=== PATIENT | male | born 1960 | race Caucasian/White ===

== ENCOUNTER → 2023-05-19 | Outpatient (CLI) | payer OTHER ==
[2023-05-19 15:56] LABS: BASOPHILS ABSOLUTE AUTO 0.01 K/mm3 (0.00-0.23); BASOPHILS PERCENT AUTO 0 % (0-2); EOSINOPHILS ABSOLUTE AUTO 0.01 K/mm3 (0.00-0.68); EOSINOPHILS PERCENT AUTO 0 % (0-6); Hematocrit 40.3 % (37.0-53.0); Hemoglobin 13.4 g/dL (13.5-17.5); IMMATURE GRAN ABSOLUTE AUTO 0.03 K/mm3 (0.00-0.10); IMMATURE GRAN PERCENT AUTO 0 % (0-1); LYMPHOCYTES ABSOLUTE AUTO 0.81 K/mm3 (0.84-5.20); LYMPHOCYTES PERCENT AUTO 9 % (21-46); MONOCYTES ABSOLUTE AUTO 0.77 K/mm3 (0.16-1.47); MONOCYTES PERCENT AUTO 8 % (4-13); Mean Corpuscular HGB 30.5 pg (26.0-34.0); Mean Corpuscular HGB Conc 33.3 g/dL (31.5-36.5); Mean Corpuscular Volume 92 fL (80-100); Mean Platelet Volume 10.1 fL (9.1-12.4); NEUTROPHILS ABSOLUTE AUTO 7.51 K/mm3 (1.96-9.15); NEUTROPHILS PERCENT AUTO 82 % (41-73); Platelet Count 604 K/mm3 (150-400); RDW Coefficient Variation 11.8 % (11.7-14.2); RDW Standard Deviation 39.6 fL (35.1-46.3); Red Blood Cell Count 4.39 M/mm3 (4.30-5.90); White Blood Cell Count 9.14 K/mm3 (4.00-11.30)
[2023-05-19 16:23] LABS: Albumin, Blood 3.6 g/dL (3.4-5.0); Albumin/Globulin Ratio 0.9 (0.8-1.8); Bilirubin, Total 0.7 mg/dL (0.1-1.0); Bun/Creatinine Ratio 16.6 (12.0-20.0); Calcium, Blood 9.4 mg/dL (8.5-10.1); Creatinine, Blood 0.54 mg/dL (0.60-1.20); Globulin, Blood 4.2 g/dL (2.2-4.0); Potassium, Blood 3.9 mmol/L (3.5-5.5); Total Protein, Blood 7.8 g/dL (6.4-8.2)
== END | disposition home or self-care (01) ==
LOC: LAB SHORT 15:49 → LAB 15:49
PROVIDERS: Physician Assistant
DX: R07.1 Chest pain on breathing (principal); R06.00 Dyspnea, unspecified; R14.0 Abdominal distension (gaseous)
CPT/HCPCS: 80053; 83690; 85025

== ENCOUNTER 2023-06-12 10:55 | Inpatient (IN) | payer OTHER ==
[~2023-06-12] VITALS: Ht 167.6 cm; Wt 102.1 kg
[2023-06-12 12:06] LABS: BASOPHILS ABSOLUTE AUTO 0.02 K/mm3 (0.00-0.23); BASOPHILS PERCENT AUTO 0 % (0-2); EOSINOPHILS PERCENT AUTO 0 % (0-6); Hemoglobin 12.9 g/dL (13.5-17.5); IMMATURE GRAN ABSOLUTE AUTO 0.02 K/mm3 (0.00-0.10); IMMATURE GRAN PERCENT AUTO 0 % (0-1); LYMPHOCYTES PERCENT AUTO 10 % (21-46); MONOCYTES ABSOLUTE AUTO 0.86 K/mm3 (0.16-1.47); MONOCYTES PERCENT AUTO 10 % (4-13); Mean Corpuscular HGB 29.4 pg (26.0-34.0); Mean Corpuscular HGB Conc 33.1 g/dL (31.5-36.5); Mean Corpuscular Volume 89 fL (80-100); Mean Platelet Volume 9.3 fL (9.1-12.4); NEUTROPHILS ABSOLUTE AUTO 6.64 K/mm3 (1.96-9.15); NEUTROPHILS PERCENT AUTO 80 % (41-73); Platelet Count 567 K/mm3 (150-400); RDW Coefficient Variation 12.4 % (11.7-14.2); RDW Standard Deviation 40.5 fL (35.1-46.3); Red Blood Cell Count 4.39 M/mm3 (4.30-5.90); White Blood Cell Count 8.34 K/mm3 (4.00-11.30)
[2023-06-12 12:28] LABS: Albumin, Blood 3.2 g/dL (3.4-5.0); Albumin/Globulin Ratio 0.7 (0.8-1.8); Bilirubin, Total 0.5 mg/dL (0.1-1.0); Bun/Creatinine Ratio 11.2 (12.0-20.0); Calcium, Blood 9.6 mg/dL (8.5-10.1); Creatinine, Blood 0.54 mg/dL (0.60-1.20); Globulin, Blood 4.5 g/dL (2.2-4.0); Potassium, Blood 4.5 mmol/L (3.5-5.5); Total Protein, Blood 7.7 g/dL (6.4-8.2)
[2023-06-12 17:46] LABS: International Normalized Ratio 1.18; Prothrombin Time Results 12.3 Sec (9.7-11.5)
[2023-06-12 21:54] VITALS: BP 145/99
--- NOTE | 2023-06-12 22:30 | NUR ---
PT ARRIVED TO THE UNIT AT 2145. PT WAS ABLE TO TRANSFER BY FOOT FROM THE W/ TO THE HOSPITAL BED. PT ADMITTED FOR DYSPNEA/SHORTNESS OF BREATH, AND PERICARDIAL EFFUSION. PT HAS BEEN EXPERIENCING CHEST PAIN FOR ABOUT A MONTH NOW. PT ON TELEMETRY, NSR AT 97BPM. LUNG SOUNDS CTA, BILAT DIMINISHED AT BASES. PT A&O x4, VSS, AFEBRILE. PT ON RA, GOAL FOR OXYGEN SATURATION TO BE AT 94%. OXYGEN SAT AT 92%. SOB WITH ACTIVITY. PT AMBULATES WITH STEADY GAIT, UP AD NILESH, INDEPENDENT WITH ADL's. CALL LIGHT WITHIN REACH, WCTM.
[2023-06-13 02:45] VITALS: BP 141/85
[2023-06-13 05:55] LABS: Hematocrit 39.1 % (37.0-53.0); Hemoglobin 12.6 g/dL (13.5-17.5); Mean Corpuscular HGB 29.5 pg (26.0-34.0); Mean Corpuscular HGB Conc 32.2 g/dL (31.5-36.5); Mean Corpuscular Volume 92 fL (80-100); Mean Platelet Volume 9.2 fL (9.1-12.4); Platelet Count 548 K/mm3 (150-400); RDW Coefficient Variation 12.6 % (11.7-14.2); RDW Standard Deviation 41.9 fL (35.1-46.3); Red Blood Cell Count 4.27 M/mm3 (4.30-5.90); White Blood Cell Count 8.87 K/mm3 (4.00-11.30)
--- NOTE | 2023-06-13 05:57 | NUR ---
END OF SHIFT SUMMARY PT SLEPT ON AND OFF OVERNIGHT. NO C/O GENERALIZED PAIN, SOME SOB WITH EXERTION. PT NPO TODAY FOR THORACENTESIS. PT A&O x4, ABLE TO MAKE NEEDS KNOWN, CALLS APPROPRIATELY. CALL LIGHT WITHIN REACH, WCTM.
[2023-06-13 06:11] LABS: Bun/Creatinine Ratio 16.1 (12.0-20.0); Calcium, Blood 8.7 mg/dL (8.5-10.1); Creatinine, Blood 0.44 mg/dL (0.60-1.20); Potassium, Blood 4.1 mmol/L (3.5-5.5)
[2023-06-13 07:29] VITALS: BP 126/69
[2023-06-13 14:45] LABS: Automated BF RBC Count 0.057 M/mm3 (0-0); Automated BF WBC Count 2.491 K/mm3 (0-999)
[2023-06-13 14:48] LABS: Body Fluid WBC Count 2491 /mm3 (0-999); RBC Count, Body Fluid 57000 /mm3 (0-0)
[2023-06-13 15:05] LABS: Appearance, Body Fluid Cloudy (Clear); Color, Body Fluid Amber (None-Yellow)
[2023-06-13 15:06] LABS: Albumin, Body Fluid 2.7 g/dL; Lactate Dehydrogenase, Body Fl 416 U/L; Protein, Body Fluid 4.9 g/dL
[2023-06-13 15:24] LABS: Total Cell Count, Body Fluid 100
[2023-06-13 16:26] VITALS: BP 127/90
--- NOTE | 2023-06-13 17:35 | NUR ---
DAYSHIFT SUMMARY Patient alert & oriented x4. Reports sternal pain that mata. ECHO done this morning, results pending. US guided thorancenetsis procedure this afternoon, fluid culture sent to lab. Vitals stable, telemetry in place, no cardiac events this shift. Will continue plan of care.
[2023-06-13 19:32] VITALS: BP 126/71
[2023-06-14] VITALS (7 sets, daily range): BP systolic 109–141; BP diastolic 74–97
--- NOTE | 2023-06-14 00:30 | NUR ---
HOSPITALIST CONTACTED. PATIENTS PULSE HAS SUSTAINED IN THE 130'S X25 MINUTES-PROVIDER NOTIFIED-ONE TIME DOSE OF LOPRESSOR ORDERED PER MD-SEE ORDERS.
--- NOTE | 2023-06-14 03:55 | NUR ---
PATIHOSPITALIST CONTACTED. PATIENTS HEART RATE HAS BEEN SUSTAINING IN THE 130'S TO 140'S FOR THE PAST APPROX. 4 HOURS. ORDERED 10MG CARDIZEM IV. PATIENT DENIES CHEST PAIN/PRESSURE/TIGHTNESS.
--- NOTE | 2023-06-14 04:36 | NUR ---
IV CARDIZEM. AT 0427 PATIENT B/P 141/97 PULSE 137 PRIOR TO CARDIZEM BEING GIVEN. CARDIZEM GIVEN POST CARDIZEM AT 0433 B/P 109/81 PULSE 97 VIA VITAL MACHINE PULSE 99 VIA BACKSHOE PERSON. 0447 B/P 113/74 PULSE 101 VIA BACKSHOE PERSON-MANUAL INPUT INTO VITALS.
--- NOTE | 2023-06-14 06:36 | NUR ---
SHIFT SUMMARY. PATIENT IS AOX4. PATIENT IS INDEPENDENT IN ROOM. PATIENT HAD AN ELEVATED PULSE-SEE PREVIOUS NOTES. PATIENT CALLS APPROPRAITELY AND IS ABLE TO MAKE HIS NEEDS KNOWN. PATIENT UNABLE TO SLEEP WELL D/T NOT BEING ABLE TO GET COMFORTABLE-PATIENT OFFERED PILLOWS AND BLANKETS, DECLINED HE THOUGHT HE MIGHT JUST FIGHT WITH THE EXTRA BEDDING. BED IS LOCKED IN THE LOWEST POSITION W/CALL LIGHT IN REACH. NO S/S OF DISTRESS NOTED AT THIS TIME.
--- NOTE | 2023-06-14 17:20 | NUR ---
SHIFT SUMMARY: PT IS A 62 YEAR OLD MALE HERE BEING TREATED FOR LEFT SIDED PLEURAL EFFUSION. HE HAD A THORACENTESIS 06/13 AND WAS FEELING BETTER, BUT DOES COMPLAIN OF RETURNED DIFFICULTY BREATHING TODAY. HIS LUNG SOUNDS ARE CLEAN BESIDES DIMINSHED SOUND IN HIS LLL. HE CONTINUES TO RUN TACHYCARDIAC ON TELEMETRY 101-108. NO REPORTS OF TELEMETRY THROUGHOUT THE SHIFT. STARTED THE PATIENT ON IV ANITBIOTICS TODAY AFTER FINDINGS OF FLUIDS OBTAINED FROM THORACENTESIS. PLAN IS TO REPEAT CHEST XRAY 06/15 IN THE MORNING. PATIENT IS IN BED WATCHING TV, CALL LIGHT WITHIN REACH, NO SIGNS OR SYMPTOMS OF DISTRESS. PLAN OF CARE ONGOING.
[2023-06-15 02:08] VITALS: BP 117/62
--- NOTE | 2023-06-15 02:25 | NUR ---
TELE. SIMONE CHAPPELL FROM TELE CALLED TO NOTIFY THIS RN THAT THE PATIENTS HEART RATE HAS INCREASED INTO THE HIGH ONE-TEENS, PATIENT NOT SUSTAINING IN THIS RANGE. PATIENTS HEART RATE BACK DOWN TO 107 WITH IN 2MINUTES. PATIENT ASYMPTOMATIC, B/P IN RANGE AND STABLE, HEART RATE IS TACHYCARDIC-HAS BEEN SUSTAINING BELOW 115BPM OTHER THAN THIS EVENT.
--- NOTE | 2023-06-15 05:03 | NUR ---
SHIFT SUMMARY. PATIENT IS ADMITTED FOR PERICARDIAL EFFUSION. PATIENT IS ON TELE RUNNING SINUS TACH AT 107 DURING ASSESSMENT-SEE PREVIOUS NOTE. PATIENT IS INDEPENDENT IN ROOM. CALLS APPROPRIATELY AND IS ABLE TO MAKE HIS NEEDS KNOWN. PATIENT IS PLEASANT, AOX4. PATIENT RESTING DURING ROUNDING WITH RESPIRATIONS EQUAL AND UNLABORED. BED IS LOCKED IN THE LOWEST POSITION W/CALL LIGHT IN REACH. NO S/S OF DISTRESS NOTED AT THIS TIME.
[2023-06-15 07:15] VITALS: BP 121/80
--- NOTE | 2023-06-15 10:59 | NUR ---
CALL MADE TO DR. PENNY INFORMING HIM OF CHEST XRAY RESULTS AND NOTIFIED OF SUSTAINED TACHYCARDIA IN THE 110-[address] PENNY WILL REVIEW.
[2023-06-15 16:54] VITALS: BP 118/82
--- NOTE | 2023-06-15 19:19 | NUR ---
SHIFT SUMMARY: PT WAS NOT DISCHARGE TODAY DUE TO NO SIGNS OF IMPROVEMENT OF HIS CHEST XRAY AND REMAINING SYMPTOMS OF DYSPNEA. PLAN IS TO CONTINUE TO TREAT PATIENT WITH ANTIBIOTICS AND MONITOR HIS PLEURAL EFFUSION AND AWAIT NEED FOR POSSIBLE THORACENTESIS. PATIENT IS INDEPENDENT IN HIS ROOM, MAKES HIS NEEDS KNOWN, NO SIGNS OR SYMPTOMS OF DISTRESS. PLAN OF CARE ONGOING.
[2023-06-15 20:04] VITALS: BP 132/85
[2023-06-16 03:33] VITALS: BP 120/80
[2023-06-16 05:43] LABS: Hematocrit 38.9 % (37.0-53.0); Hemoglobin 12.2 g/dL (13.5-17.5); Mean Corpuscular Volume 91 fL (80-100); Red Blood Cell Count 4.29 M/mm3 (4.30-5.90)
[2023-06-16 05:44] LABS: Mean Corpuscular HGB 28.4 pg (26.0-34.0); Mean Corpuscular HGB Conc 31.4 g/dL (31.5-36.5); Mean Platelet Volume 9.5 fL (9.1-12.4); Platelet Count 553 K/mm3 (150-400); RDW Coefficient Variation 12.9 % (11.7-14.2); RDW Standard Deviation 42.7 fL (35.1-46.3)
[2023-06-16 06:03] LABS: Albumin, Blood 2.7 g/dL (3.4-5.0); Anion Gap 4 mmol/L (6-16); Blood Urea Nitrogen 7 mg/dL (8-24); Bun/Creatinine Ratio 20.1 (12.0-20.0); CO2, Blood 33 mmol/L (21-32); Calcium, Blood 9.2 mg/dL (8.5-10.1); Chloride, Blood 104 mmol/L (98-108); Creatinine, Blood 0.35 mg/dL (0.60-1.20); Glomerular Filtration Rate 130 (60-); Glucose, Blood 111 mg/dL (70-99); Phosphorus, Blood 4.4 mg/dL (2.5-4.9); Potassium, Blood 3.8 mmol/L (3.5-5.5); Sodium, Blood 141 mmol/L (136-145)
--- NOTE | 2023-06-16 06:39 | NUR ---
SHIFT SUMMARY. PATIENT IS A 62 YEAR OLD MALE IN WITH PERICARDIAL EFFUSION. PATIENT IS AOX4. INDEPENDENT IN ROOM. PATIENT HAD NEW IV PLACED D/T INFILTRATION ON PREVIOUS IV. PATIENT CALLS APPROPRIATELY AND IS ABLE TO MAKE HIS NEEDS KNOWN. PATIENT HAVING A HARD TIME GETTING COMFORTABLE- TRIED TO SLEEP IN BENCH BED THAT WAS NOT SUCCESSFUL. PATIENT IS COOPERATIVE WITH CARE. TAKES PILLS WHOLE WITH WATER. BED IS LOCKED IN THE LOWEST POSITION WITH CALL LIGHT IN REACH. NO S/S OF DISTRESS NOTED AT THIS TIME.
[2023-06-16 07:35] VITALS: BP 128/79
[2023-06-16 16:43] VITALS: BP 137/88
--- NOTE | 2023-06-16 17:21 | NUR ---
SHIFT SUMMARY- PT IS A/O, PLESANT AND COOPERATIVE. HE IS EATING AND DRINKING WELL. HE REPORTS SOME SHORTENSS OF BREATH WHEN HE IS LAYING FLAT. AWAITING LDH. INDEPENDENT IN THE ROOM. HIS BED IS IN THE LOW POSITON AND CALL LIGHT IS WITIN REACH.
[2023-06-16 19:33] VITALS: BP 134/77
--- NOTE | 2023-06-17 02:35 | NUR ---
ASSUMED CARE PT APPEARS TO BE SLEEPING, RESP UNLABORED, CALL LIGHT IN REACH
[2023-06-17 04:22] VITALS: BP 113/59
[2023-06-17 09:06] VITALS: BP 126/78
[2023-06-17 10:57] LABS: Automated BF RBC Count 0.041 M/mm3 (0-0); Automated BF WBC Count 2.718 K/mm3 (0-999)
[2023-06-17 11:07] LABS: Body Fluid WBC Count 2718 /mm3 (0-999); RBC Count, Body Fluid 41000 /mm3 (0-0)
[2023-06-17 11:31] LABS: Total Cell Count, Body Fluid 100
[2023-06-17 11:32] LABS: Appearance, Body Fluid Cloudy (Clear); Color, Body Fluid Red (None-Yellow)
--- NOTE | 2023-06-17 14:41 | NUR ---
PT DISCHARGED THE PT VERBALIZED UNDERSTANDING OF THE DC INSTRUCTIONS. A FOLLOW UP APPOINTMENT WAS SCHEDULED WITH THE DIGITAL ADVISOR PRIOR TO DISCHARGE. THE PT APPEARS TO BE BREATHING EASILY DENIED SOB. THE PT WAS TRANSFERED VIA WHEELCHAIR ACCOMPANIED BY THE OPHTHALMIC TECH.
== END 2023-06-17 15:04 | disposition home or self-care (01) | DRG 186 ==
LOC: ER 10:55 → MEDS 17:48 → ERHOLD 17:48 → MEDS 21:44
PROVIDERS: Internal Medicine; Nurse Practitioner Acute Care; Physician Assistant; ADMIT Student in an Organized Health Care Education/Training Program
PROC: 0W9B3ZZ Drainage of Left Pleural Cavity, Percutaneous Approach (ICD-10-PCS; principal; 2023-06-13)
PROC: 0W9B3ZZ Drainage of Left Pleural Cavity, Percutaneous Approach (ICD-10-PCS; 2023-06-17)
DX: J90 Pleural effusion, not elsewhere classified (principal); J96.01 Acute respiratory failure with hypoxia; I31.9 Disease of pericardium, unspecified; J98.11 Atelectasis; R00.0 Tachycardia, unspecified; Z88.0 Allergy status to penicillin; Z87.891 Personal history of nicotine dependence
CPT/HCPCS: 32555; 36415; 71045; 71046; 76705; 80048; 80053; 80069; 82042; 83615; 83880; 84145; 84157; 84484; 85025; 85027; 85610; 85651; 86140; 87070; 87075; 87205; 88108; 88305; 88341; 88342; 89051; 93005; 93010; 93306; 99285-25; A9270; J1956

== ENCOUNTER 2024-03-11 11:44 | Day surgery (SDC) | payer OTHER ==
[~2024-03-11] VITALS: Ht 170.2 cm; Wt 114.5 kg
[~2024-03-11 11:44] MED LIST: Lactated Ringer's 1,000 ML IV ONE
[2024-03-11] MEDS ORDERED: COQ-10100 MG (12:11)
[2024-03-11] MEDS ORDERED: Vitamin C100 M1 (12:11)
[2024-03-11] MEDS ORDERED: XARELTO20 MG (12:11)
[2024-03-11] MEDS ORDERED: ERGO400 (12:12)
[2024-03-11] MEDS ORDERED: Lactated Ringer's 1,000 ML IV ONE (12:48)
[2024-03-11] MEDS ORDERED: Lidocaine HCl 1% 30 ML SDV ONE (13:16)
[2024-03-11] MEDS ORDERED: propofoL 60 ML IV ONE (13:21)
[2024-03-11] MEDS ORDERED: propofoL 40 ML IV ONE (13:26)
[2024-03-11 14:00] VITALS: BP 133/85
== END 2024-03-11 14:10 | disposition home or self-care (01) ==
LOC: ORSCSDS 11:44
PROVIDERS: Surgery
PROC: 0DJD8ZZ Inspection of Lower Intestinal Tract, Via Natural or Artificial Opening Endoscopic (ICD-10-PCS; principal; 2024-03-11 13:00)
DX: Z12.11 Encounter for screening for malignant neoplasm of colon (principal); K64.8 Other hemorrhoids; I10 Essential (primary) hypertension; Q43.8 Other specified congenital malformations of intestine; Z86.711 Personal history of pulmonary embolism; J90 Pleural effusion, not elsewhere classified; E66.01 Morbid (severe) obesity due to excess calories; Z68.39 Body mass index [BMI] 39.0-39.9, adult; F41.9 Anxiety disorder, unspecified; Z72.0 Tobacco use; Z79.01 Long term (current) use of anticoagulants; Z79.899 Other long term (current) drug therapy
CPT/HCPCS: J2704; J7120